=== PATIENT | male | born 1980 | race Caucasian/White ===

== ENCOUNTER 2021-01-09 18:54 | Emergency (ER) | payer OTHER ==
[2021-01-09 18:58] VITALS: RESP 18; TEMP 98.6
[2021-01-09] MEDS ORDERED: HYDROmorphone 1 MG/ML 1 ML SYRINGE IVP STA (19:16)
--- NOTE | 2021-01-09 19:30 | ED ---
General Adult HPI - General Chief complaint: Urogenital Stated complaint: Sent by [facility] - Kidney Stone Time Seen by Provider: 01/09/21 18:55 Source: patient, RN notes reviewed, old records reviewed Mode of arrival: wheelchair Limitations: no limitations - History of Present Illness Initial comments: This is a 40-year-old male who presents to the emergency department from [facility] he was diagnosed with a 1.8 cm kidney stone. Patient was sent up here initially to be admitted that there was a failure in the medication and the patient did not want to be admitted he just wanted better pain control so Dr. Mccarty was contacted and he contacted myself and asked me to get the patient 100 good pain control so that he could follow-up with him in the office tomorrow. Patient states the pain started about 2:00 this afternoon and he had kidney stone pain before so he knew fairly quickly what was going on. Patient denies any other pain. Patient denies any fever chills or cough per patient denies any chest pain difficulty breathing. Patient denies any reproducible pain with palpation. Patient had a CAT scan at [facility]. - Related Data Previous Rx's Medication Instructions Recorded HYDROcodone/APAP 5-325MG [[place] 1 - 2 tab PO Q6HR PRN #10 tab 01/09/21 5-325] Ketorolac [Toradol] 10 mg PO Q6HR #15 tab 01/09/21 Allergies Allergy/AdvReac Type Severity Reaction Status Date / Time No Known Allergies Allergy Verified 01/10/21 15:14 Review of Systems ROS Statement: Those systems with pertinent positive or pertinent negative responses have been documented in the HPI. ROS Other: All systems not noted in ROS Statement are negative. Past Medical History Additional Past Medical History / Comment(s): hx of kidney stones History of Any Multi-Drug Resistant Organisms: None Reported Additional Past Surgical History / Comment(s): vasectomy Smoking Status: Never smoker Past Alcohol Use History: Occasional Past Drug Use History: None Reported General Exam - General Exam Comments Initial Comments: GENERAL: Patient is well-developed and well-nourished. Patient is nontoxic and well- hydrated and is in moderate distress. ENT: Neck is soft and supple. No significant lymphadenopathy is noted. Oropharynx is clear. Moist mucous membranes. Neck has full range of motion without eliciting any pain. EYES: The sclera were anicteric and conjunctiva were pink and moist. Extraocular movements were intact and pupils were equal round and reactive to light. PULMONARY: Unlabored respirations. Good breath sounds bilaterally. No audible rales rhonchi or wheezing was noted. CARDIOVASCULAR: There is a regular rate and rhythm without any murmurs gallops or rubs. ABDOMEN: Soft and nontender with normal bowel sounds. SKIN: Skin is clear with no lesions or rashes and otherwise unremarkable. NEUROLOGIC: Patient is alert and oriented x3. Cranial nerves II through XII are grossly intact. Motor and sensory are also intact. Normal speech, volume and content. Symmetrical smile. MUSCULOSKELETAL: Normal extremities with adequate strength and full range of motion. No lower extremity swelling or edema. No calf tenderness. Mild CVA tenderness on the left LYMPHATICS: No significant lymphadenopathy is noted PSYCHIATRIC: Normal psychiatric evaluation. Limitations: no limitations Course Vital Signs 01/09/21 01/09/21 18:54 20:42 Temperature 98.6 F Pulse Rate 79 76 Respiratory 18 18 Rate Blood Pressure 150/95 143/93 O2 Sat by Pulse 100 95 Oximetry Medical Decision Making - Medical Decision Making Patient received one shot of Dilaudid and was feeling considerably better. He still had a little bit of pain so I gave him Toradol prior to discharge. Disposition Clinical Impression: Kidney stone on left side Disposition: HOME SELF-CARE Condition: Good Prescriptions: HYDROcodone/APAP 5-325MG [[place] 5-325] 1 - 2 tab PO Q6HR PRN #10 tab PRN Reason: Pain Ketorolac [Toradol] 10 mg PO Q6HR #15 tab Is patient prescribed a controlled substance at d/c from ED?: Yes When asked, does pt state using other controlled substances?: No If prescribed controlled substance>3 days was MAPS reviewed?: Prescribed <3 Days If opioid is for acute pain is fill amount 7 days or less?: Yes If Rx opioid, was Start Talking consent form obtained?: Yes Referrals: Rohan Baez MD [STAFF PHYSICIAN] - 01/10/21
[2021-01-09] MEDS ORDERED: KETOROLAC 15 MG/ML 1 ML VIAL IVP STA (20:20)
[2021-01-09 20:43] VITALS: BP 143/93; PULSE 76
== END 2021-01-09 20:43 | disposition home or self-care (01) ==
LOC: EC 18:54
DX: N20.0 Calculus of kidney (principal); Z87.442 Personal history of urinary calculi; Z98.52 Vasectomy status
CPT/HCPCS: J1170; J1885; 96374; 96375; 99283

== ENCOUNTER 2021-01-10 14:56 | Day surgery (SDC) | payer OTHER ==
--- NOTE | 2021-01-10 13:11 | P.GSHP ---
History of Present Illness H&P Date: 01/10/21 Chief Complaint: Left renal colic The patient is a 40-year-old white male with a history of recurrent urolithiasis. He has previously undergone ESWL once, and ureteroscopy with laser lithotripsy on 2 occasions. He now presents with left renal colic. A computed tomography scan shows evidence of left hydronephrosis due to a 1 cm left UPJ calculus. There are additional multiple renal calculi, the largest being 1.8 cm in the left kidney. - Constitutional Constitutional: Denies chills, Denies fever - Genitourinary (Male) Genitourinary: Reports flank pain, Reports kidney stones Past Medical History Additional Past Medical History / Comment(s): hx of kidney stones History of Any Multi-Drug Resistant Organisms: None Reported Additional Past Surgical History / Comment(s): vasectomy, ESWL, ureteroscopy with laser lithotripsy (x2) Smoking Status: Never smoker Past Alcohol Use History: Occasional Past Drug Use History: None Reported Medications and Allergies Home Medications Medication Instructions Recorded Confirmed Type HYDROcodone/APAP 5-325MG [[place] 1 - 2 tab PO Q6HR PRN #10 tab 01/09/21 Rx 5-325] Ketorolac [Toradol] 10 mg PO Q6HR #15 tab 01/09/21 Rx Allergies Allergy/AdvReac Type Severity Reaction Status Date / Time No Known Allergies Allergy Verified 01/09/21 18:58 Surgical - Exam - General well developed, well nourished, no distress - Respiratory normal respiratory effort, clear to auscultation - Cardiovascular Rhythm: regular Abnormal Heart Sounds: no systolic murmur, no diastolic murmur, no rub, no S3 Gallop, no S4 Gallop, no click, no other - Abdomen Abdomen: soft, no guarding, no rigid, no rebound - Psychiatric oriented to time, oriented to person, oriented to place, speech is normal, memory intact Results - Imaging CT scan - abdomen: report reviewed Assessment and Plan (1) Calculus of ureter Status: Acute Code(s): N20.1 - CALCULUS OF URETER SNOMED Code(s): 31555160 (2) Hydronephrosis with renal and ureteral calculous obstruction Status: Acute Code(s): N13.2 - HYDRONEPHROSIS WITH RENAL AND URETERAL CALCULOUS OBSTRUCTION SNOMED Code(s): 809113111 Plan: Cystoscopy, left ureteral stent insertion. The procedure has been reviewed in detail with the patient and his . The purpose of stent placement is to relieve ureteral obstruction. Potential risks include anesthesia, bleeding, infection, ureteral injury, and inability to successfully place the stent. Ureteroscopy may be required to place the stent. Arrangements will subsequently be made for him to undergo a left percutaneous nephrolithotomy.
[2021-01-10] MEDS ORDERED: ONDANSETRON 4 MG/2 ML VIAL ONE (15:16)
--- NOTE | 2021-01-10 15:19 | XR ---
EXAMINATION TYPE: XR KUB DATE OF EXAM: 01/10/2021 COMPARISON: 08/10/2010 INDICATION: Renal stones TECHNIQUE: Single view abdomen supine view FINDINGS: There is a normal bowel gas pattern. Psoas margins are normal. No organomegaly is present. There are several calcifications present over the renal and ureteral regions bilaterally. On the righ t this measures 2.2 x 1.5 cm. Proximal ureteral stone on the right may measure 1.0 x 0.8 cm. On the l eft a proximal left ureteral stone measures 1.3 x 1.0 cm. Punctate calcifications line the inferior p ole left kidney. Prior distal ureteral stone is not identified. IMPRESSION: 1. Multiple bilateral renal and ureteral stones
[2021-01-10] MEDS ORDERED: LACTATED RINGERS 1,000 ML IV ONE ×2 (15:28→18:16)
[2021-01-10] MEDS ORDERED: DEXAMETHASONE SOD PHOSPHATE 4 MG/ML 1 ML VIAL IVP ONE (15:33)
[2021-01-10 15:46] LABS: Albumin 4.1 g/dL (3.5-5.0); Calcium 8.8 mg/dL (8.4-10.2); Potassium 3.7 mmol/L (3.5-5.1); Total Protein 6.5 g/dL (6.3-8.2)
[2021-01-10] MEDS ORDERED: LIDOCAINE 1% INJ 10MG/ML (20 ML MDV) ONE (17:00)
[2021-01-10] MEDS ORDERED: fentaNYL (PF) 50 MCG/ML 2 ML AMP ONE (17:00)
[2021-01-10] MEDS ORDERED: MIDAZOLAM 2 MG/2 ML VIAL ONE (17:00)
[2021-01-10] MEDS ORDERED: PROPOFOL 10 MG/ML 20 ML VIAL IV ONE (17:00)
[2021-01-10] MEDS ORDERED: IOPAMIDOL-370 50ML BTL MISCELLANE ONE ×2 (17:48)
[2021-01-10 18:08] VITALS: RESP 16; TEMP 98
--- NOTE | 2021-01-10 18:14 | P.OP ---
Date of Procedure: 01/10/21 Preoperative Diagnosis: Left ureteral calculus Postoperative Diagnosis: Bilateral ureteral calculi Procedure(s) Performed: Cystoscopy, right retrograde pyelogram, bilateral ureteral stent insertion Anesthesia: GETA Surgeon: Rohan Baez Estimated Blood Loss (ml): 0 IV fluids (ml): 350 Pathology: none sent Condition: stable Disposition: PACU Indications for Procedure: The patient is a 40-year-old white male with a history of recurrent urolithiasis. He has previously undergone ESWL once, and ureteroscopy with laser lithotripsy on 2 occasions. He now presents with left renal colic. A CT scan report indicated the presence of left hydronephrosis due to a 1 cm left UPJ calculus. There are additional multiple renal calculi, the largest being 1.8 cm in the left kidney. The computed tomography scan report indicated no evidence of right hydronephrosis. However, a preoperative KUB x-ray suggests the presence of bilateral proximal ureteral calculi. Operative Findings: Bilateral proximal ureteral calculi Description of Procedure: The patient was taken to the operating room and placed in the dorsolithotomy position, with legs supported in Geronimo stirrups. The external genitalia was pr epped and draped sterilely. The 30 lens was used to introduce the 22-Macanese Stortz cystoscopic sheath through the urethra and into the bladder under direct vision. The prostatic urethra showed evidence of mild lateral lobe enlargement. The bladder was examined in its entirety. Both ureteral orifices were of normal anatomic location and configuration. No tumors or foreign bodies were seen. A 0.035 inch angle-tip Glidewire was passed through the cystoscope. The left ureteral orifice was cannulated, and the Glidewire was slowly advanced beyond the calculus and up to the renal pelvis. A 26 cm, 6-Macanese double-J ureteral stent was placed over the wire. Proper stent positioning was verified fluoroscopically and endoscopically. Using a 10-Macanese cone-tipped catheter, a right retrograde pyelogram was performed. This confirmed the presence of a right proximal ureteral calculus, and a right ureteral stent was placed in an identical fashion to the left. The bladder was emptied and the cystoscope removed. The patient tolerated the procedure well was taken to the recovery room in stable condition.
[2021-01-10 18:48] VITALS: BP 129/83; PULSE 81
--- NOTE | 2021-01-11 08:10 | FL ---
EXAMINATION TYPE: FL urography retrograde DATE OF EXAM: 01/10/2021 FLUOROSCOPY Fluoroscopy time of 40 seconds was used during bilateral stent placement for renal stones. 2 image/s document/s the procedure.
== END 2021-01-10 19:06 | disposition home or self-care (01) ==
LOC: OR 14:56
PROVIDERS: ATTEND Urology
DX: N13.2 Hydronephrosis with renal and ureteral calculous obstruction (principal); Z87.442 Personal history of urinary calculi; Z98.52 Vasectomy status; Z98.890 Other specified postprocedural states; Z79.1 Long term (current) use of non-steroidal anti-inflammatories (NSAID)
CPT/HCPCS: 52332; 80053; 74420; 74018; C2625; C1769; J2250; J1100; J0690; J2405; J2001; J3010; J2704; Q9967

== ENCOUNTER 2021-01-23 08:30 | Day surgery (SDC) | payer OTHER ==
--- NOTE | 2021-01-20 17:34 | P.GSHP ---
History of Present Illness H&P Date: 01/20/21 Chief Complaint: Renal colic The patient is a 40-year-old white male with a history of recurrent urolithiasis. He has previously undergone ESWL once, and ureteroscopy with laser lithotripsy on 2 occasions. He recently presented with left renal colic. A CT scan showed evidence of left hydronephrosis due to a 1 cm left UPJ calculus. There are additional multiple renal calculi, the largest being 1.8 cm in the right kidney. He underwent left ureteral stent insertion. At that time, it was noted that an 8 mm right renal calculus had migrated into the proximal ureter, so a right ureteral stent was placed as well. Alternative treatment options have been reviewed with the patient in detail. On the left side, options include ureteroscopy with laser lithotripsy versus extracorporeal shockwave lithotripsy (ESWL). On the right side, a percutaneous nephrolithotomy is also a consideration. He is aware that he will require multiple treatments, and he has elected to undergo left ESWL as his initial treatment. - Constitutional Constitutional: Denies chills, Denies fever - Genitourinary (Male) Genitourinary: Reports flank pain, Reports hematuria, Reports kidney stones Past Medical History Additional Past Medical History / Comment(s): hx of kidney stones History of Any Multi-Drug Resistant Organisms: None Reported Additional Past Surgical History / Comment(s): vasectomy, ESWL, ureteroscopy with laser lithotripsy (x2) Smoking Status: Never smoker Past Alcohol Use History: Occasional Past Drug Use History: None Reported Medications and Allergies Home Medications Medication Instructions Recorded Confirmed Type HYDROcodone/APAP 5-325MG [[place] 1 - 2 tab PO Q6HR PRN #10 tab 01/09/21 Rx 5-325] Ketorolac [Toradol] 10 mg PO Q6HR #15 tab 01/09/21 Rx Allergies Allergy/AdvReac Type Severity Reaction Status Date / Time No Known Allergies Allergy Verified 01/10/21 15:14 Surgical - Exam - General well developed, well nourished, no distress - Respiratory normal respiratory effort, clear to auscultation - Cardiovascular Rhythm: regular Abnormal Heart Sounds: no systolic murmur, no diastolic murmur, no rub, no S3 Gallop, no S4 Gallop, no click, no other - Abdomen Abdomen: soft, non tender, no guarding, no rigid, no rebound - Genitourinary normal penis with no external lesions, testicles non-tender - Psychiatric oriented to time, oriented to person, oriented to place, speech is normal, memory intact Results - Imaging CT scan - abdomen: report reviewed, image reviewed Assessment and Plan (1) Kidney stone on left side Status: Acute Code(s): N20.0 - CALCULUS OF KIDNEY SNOMED Code(s): 35581129 Plan: I discussed with the patient the treatment of the calculus with ESWL. I explained the possible need for repeat ESWL or alternative treatment in the event of treatment failure or incomplete fragmentation. I discussed the risks of ESWL, including anesthesia, collateral damage to other organs, renal contusion, and perinephric hematoma. The possible need for a secondary intervention such as ureteroscopy was discussed. Following a lengthy discussion, as a result of shared decision making, the patient has elected to proceed with left ESWL.
[~2021-01-23 08:30] MED LIST: LACTATED RINGERS 1,000 ML IV SCH
[2021-01-23] MEDS ORDERED: LACTATED RINGERS 1,000 ML IV ONE (08:51)
--- NOTE | 2021-01-23 08:57 | XR ---
EXAMINATION TYPE: XR KUB DATE OF EXAM: 01/23/2021 Comparison: 01/10/2021 Clinical History: 40-year-old male presurgical evaluation, OR SCHEDULED 01/23/21 Findings: Bilateral ureteral stents placed in the interval. 1.0 cm calcification along the proximal portion of the right ureteral stent. Possible 3 mm calcification along the proximal aspect of the left ureteral stent. Larger 2.0 cm right renal calculus. 9 mm left renal calculus. Nonobstructive bowel gas pattern . Mild to moderate stool burden. Impression: Bilateral nephrolithiasis and ureteral stents in place. A 1 cm calculus along the proximal portion of the right ureteral stent and 3 mm calculus along the proximal portion of the left ureteral stent.
[2021-01-23] MEDS ORDERED: ONDANSETRON 4 MG/2 ML VIAL ONE (09:16)
[2021-01-23] MEDS ORDERED: ONDANSETRON 4 MG/2 ML VIAL IVP ONE (09:21)
[2021-01-23] MEDS ORDERED: PROPOFOL 10 MG/ML 20 ML VIAL IV ONE (09:23)
[2021-01-23] MEDS ORDERED: fentaNYL (PF) 50 MCG/ML 2 ML AMP ONE (09:23)
[2021-01-23] MEDS ORDERED: KETAMINE 10 MG/ML 20 ML VIAL ONE (09:23)
[2021-01-23] MEDS ORDERED: LIDOCAINE 1% INJ 10MG/ML (20 ML MDV) ONE (09:23)
[2021-01-23] MEDS ORDERED: MIDAZOLAM 2 MG/2 ML VIAL ONE (09:23)
--- NOTE | 2021-01-23 10:07 | P.OP ---
Date of Procedure: 01/23/21 Preoperative Diagnosis: Left renal calculus, left ureteral calculus Postoperative Diagnosis: Same Procedure(s) Performed: Left extracorporal shockwave lithotripsy (ESWL) Anesthesia: MAC Surgeon: Rohan Baez Estimated Blood Loss (ml): 0 IV fluids (ml): 600 Pathology: none sent Condition: stable Disposition: PACU Indications for Procedure: The patient is a 40-year-old white male with a history of recurrent urolithiasis. He has previously undergone ESWL once, and ureteroscopy with laser lithotripsy on 2 occasions. He recently presented with left renal colic. A CT scan showed evidence of left hydronephrosis due to a 1 cm left UPJ calculus. There are additional multiple renal calculi, the largest being 1.8 cm in the right kidney. He underwent left ureteral stent insertion. At that time, it was noted that an 8 mm right renal calculus had migrated into the proximal ureter, so a right ureteral stent was placed as well. Alternative treatment options have been reviewed with the patient in detail. On the left side, options include ureteroscopy with laser lithotripsy versus extracorporeal shockwave lithotripsy (ESWL). On the right side, a percutaneous nephrolithotomy is also a consideration. He is aware that he will require multiple treatments, and he has elected to undergo left ESWL as his initial treatment. Operative Findings: Excellent fragmentation. Description of Procedure: The patient was taken to the operating room and placed on the Dornier Compact Delta II lithotripter in the supine position. The calculi were seen on biplanar fluoroscopy. Once the patient was properly positioned and sedated, lithotripsy was performed. The energy level was gradually increased per protocol, to an energy level of 5. After 200 shocks were administered, a 2 minute pause was i nstituted per protocol. A total of 2500 shocks were given at a rate of 80 shocks per minute. Fluoroscopy was utilized at a minimum to ensure proper positioning and determine the treatment status. The 9 mm calculus was initially treated, and fragmented extremely well. Once that was completed, the patient was repositioned and the 3 mm left proximal ureteral calculus was treated. It was no longer visible at the completion of the procedure, and the 9 mm calculus had dispersed well. The patient tolerated the procedure well was taken to the recovery room in stable condition. Instructions were given to strain the urine, and the patient will follow-up within one week.
[2021-01-23 10:14] VITALS: PULSE 76
[2021-01-23 10:35] VITALS: BP 136/92; RESP 20
[2021-01-23] MEDS ORDERED: ONDANSETRON ODT 4 MG TAB PO ONE (11:22)
== END 2021-01-23 11:38 | disposition home or self-care (01) ==
LOC: ORWHC2ENDO 08:30
PROVIDERS: ATTEND Urology
DX: N13.2 Hydronephrosis with renal and ureteral calculous obstruction (principal); Z87.442 Personal history of urinary calculi; Z98.890 Other specified postprocedural states; Z98.52 Vasectomy status; Z79.1 Long term (current) use of non-steroidal anti-inflammatories (NSAID)
CPT/HCPCS: 74018; 50590; J2250; J2405; J2001; J3010; J2704

== ENCOUNTER → 2021-01-27 | Outpatient (CLI) | payer OTHER ==
--- NOTE | 2021-01-27 10:47 | XR ---
EXAMINATION TYPE: XR KUB DATE OF EXAM: 01/27/2021 9:30 AM CLINICAL HISTORY: Left-sided lithotripsy. TECHNIQUE: Single upright KUB image of the abdomen is obtained. COMPARISON: Most recent x-ray 4 days ago. FINDINGS: Persistent bilateral double-J right ureter stents. Dominant 2.1 cm calculus upper to mid po le of the right kidney redemonstrated. Persistent 11 mm calculus proximal right ureter stable in posi tion. Additional scattered smaller central right renal calculi are stable. Interval successful fragme ntation of the 9 mm mid to lower pole left renal calculus. Small calcific fragments between the later al left L2 and L3 transverse processes are now more prominent. More prominent tiny densities superior to the pubic symphysis. Findings felt to reflect intraluminal bladder calculi and/or phleboliths. Overall nonobstructive bowel gas pattern. Visualized osseous structures intact. IMPRESSION: Interval successful fragmentation of the dominant 9 mm left renal calculus.
== END ==
LOC: RADXRMAIN 09:16
PROVIDERS: ATTEND Urology
DX: N20.0 Calculus of kidney (principal)
CPT/HCPCS: 74018

== ENCOUNTER → 2021-02-20 | Outpatient (CLI) | payer OTHER ==
--- NOTE | 2021-02-20 12:46 | XR ---
EXAMINATION TYPE: XR KUB DATE OF EXAM: 02/20/2021 7:43 AM CLINICAL HISTORY: Left-sided ureter stone. TECHNIQUE: Two supine KUB images of the abdomen are obtained. COMPARISON: Most recent x-ray January 27, 2021. Most recent outside CT January 09, 2021. FINDINGS: Persistent bilateral double-J ureter stents. Stable dominant 2.2 cm calculus upper pole rig ht kidney. There is 10 mm calculus proximal right ureter at level of L3 transverse process, slight di stal progression from most recent x-ray noted. Smaller right-sided renal calculi remain present seen better on recent CT. Small left-sided renal calculi on CT less well seen on plain films. No new or le ft ureter calculi clearly seen on plain films. Punctate densities inferior pelvis just above the pubi c symphysis correlate with prostate calcifications just right of midline. Overall nonobstructive bowel gas pattern. Lung bases are clear. IMPRESSION: As above
== END | disposition home or self-care (01) ==
LOC: RADXRMAIN 07:18
PROVIDERS: ATTEND Urology
DX: N20.2 Calculus of kidney with calculus of ureter (principal); Z96.0 Presence of urogenital implants; Z98.890 Other specified postprocedural states
CPT/HCPCS: 74018

== ENCOUNTER 2021-02-23 08:20 | Day surgery (SDC) | payer OTHER ==
--- NOTE | 2021-02-20 18:14 | P.GSHP ---
History of Present Illness H&P Date: 02/20/21 Chief Complaint: Renal colic The patient is a 41-year-old white male with a history of recurrent urolithiasis. He recently presented with left renal colic. A CT scan showed evidence of left hydronephrosis due to a 1 cm left UPJ calculus. There were additional multiple renal calculi, the largest being 1.8 cm in the right kidney. He was also found to have an 8 mm right proximal ureteral calculus. He underwent bilateral ureteral stent insertion, followed by bilateral ex tracorporal shockwave lithotripsy (ESWL). The left renal calculus fragmented well, but the right proximal ureteral calculus failed to fragment. He now comes for cystoscopy, bilateral ureteral stent removal, and right ureteroscopy with laser lithotripsy. - Constitutional Constitutional: Denies chills, Denies fever - Genitourinary (Male) Genitourinary: Reports flank pain, Reports hematuria, Reports kidney stones Past Medical History Additional Past Medical History / Comment(s): hx of kidney stones History of Any Multi-Drug Resistant Organisms: None Reported Additional Past Surgical History / Comment(s): vasectomy, ESWL, ureteroscopy with laser lithotripsy (x2) Smoking Status: Never smoker Past Alcohol Use History: Occasional Past Drug Use History: None Reported Medications and Allergies Home Medications Medication Instructions Recorded Confirmed Type HYDROcodone/APAP 5-325MG [[place] 1 - 2 tab PO Q6HR PRN #10 tab 01/09/21 01/23/21 Rx 5-325] Ketorolac [Toradol] 10 mg PO Q6HR #15 tab 01/09/21 01/23/21 Rx HYDROcodone/APAP 5-325MG [[place] 1 - 2 tab PO Q4HR PRN #15 tab 01/23/21 Rx 5-325] Ketorolac [Toradol] 10 mg PO Q6HR PRN #15 tab 01/23/21 Rx Allergies Allergy/AdvReac Type Severity Reaction Status Date / Time No Known Allergies Allergy Verified 01/23/21 09:01 Surgical - Exam - General well developed, well nourished, no distress - Neck no masses, trachea midline - Respiratory normal respiratory effort - Abdomen Abdomen: soft, non tender, no guarding, no rigid, no rebound - Genitourinary normal penis with no external lesions, testicles non-tender - Psychiatric oriented to time, oriented to person, oriented to place, speech is normal, memory intact Assessment and Plan (1) Calculus of ureter Status: Acute Code(s): N20.1 - CALCULUS OF URETER SNOMED Code(s): 51540913 (2) Calculus of kidney Status: Acute Code(s): N20.0 - CALCULUS OF KIDNEY SNOMED Code(s): 66894047 Plan: The patient appears to have no residual left renal calculi of significance. He will undergo cystoscopy with bilateral ureteral stent removal. Right ureteroscopy with laser lithotripsy will be performed. The proximal ureteral calculus will be treated, followed by the upper pole calculus. Given the significant stone burden, it may not be possible to complete the procedure and a single setting. If this is the case, the right ureteral stent will be replaced and a subsequent procedure will be performed a 1-2 weeks. The patient understands this, and is aware of potential risks which include anesthesia, bleeding, infection, and ureteral injury.
[2021-02-21 10:31] VITALS: BMI 28.3
[~2021-02-23 08:20] MED LIST changes: +DEXAMETHASONE SOD PHOSPHATE 4 MG/ML 1 ML VIAL IV ONE; +LIDOCAINE 1% (10MG/ML) FOR IV START INTRADERMA PRN; +METOCLOPRAMIDE 5 MG/ML 2 ML VIAL IVP PRN; +ONDANSETRON 4 MG/2 ML VIAL IVP ONE; +ONDANSETRON 4 MG/2 ML VIAL IVP PRN
--- NOTE | 2021-02-23 08:58 | XR ---
EXAMINATION TYPE: XR KUB DATE OF EXAM: 02/23/2021 COMPARISON: 02/20/2021 INDICATION: Renal stones TECHNIQUE: Single view abdomen frontal projection FINDINGS: There is nonspecific bowel gas pattern. Psoas margins are normal. No organomegaly is present. Bilateral ureteral stents are present. On the right there is a 0.8 cm calcification at the level of t he elbow for transverse process adjacent to the stent. There is a 2.2 x 1.6 cm large calcification up per pole right kidney. Smaller calcifications may be on the right. Small calcifications are likely in ferior urinary bladder region IMPRESSION: 1. Stable calcification adjacent to the right ureteral stent. 2. Large right renal stone
[2021-02-23 09:02] VITALS: RESP 16
[2021-02-23] MEDS ORDERED: MIDAZOLAM 2 MG/2 ML VIAL ONE (10:00)
[2021-02-23] MEDS ORDERED: PROPOFOL 10 MG/ML 20 ML VIAL IV ONE (10:00)
[2021-02-23] MEDS ORDERED: fentaNYL (PF) 50 MCG/ML 2 ML AMP ONE (10:00)
[2021-02-23] MEDS ORDERED: LIDOCAINE 1% INJ 10MG/ML (20 ML MDV) ONE (10:00)
[2021-02-23] MEDS ORDERED: SUCCINYLCHOLINE CHLORIDE 100 MG/5 ML SYR IV ONE (10:00)
[2021-02-23] MEDS ORDERED: SCOPOLAMINE 1.5MG/72HR PATCH TRANSDERM ONE (10:06)
[2021-02-23] MEDS ORDERED: IOPAMIDOL-370 50ML BTL MISCELLANE ONE (10:34)
[2021-02-23] MEDS ORDERED: LACTATED RINGERS 1,000 ML IV ONE (10:48)
--- NOTE | 2021-02-23 12:53 | P.OP ---
Date of Procedure: 02/23/21 Preoperative Diagnosis: Right ureteral calculus, right renal calculus Postoperative Diagnosis: Same Procedure(s) Performed: Cystoscopy, left ureteral stent removal, right ureteroscopy with Holmium laser lithotripsy, right ureteral stent change Anesthesia: KIETA Surgeon: Rohan Baez Estimated Blood Loss (ml): 5 IV fluids (ml): 1,800 Pathology: none sent Condition: stable Disposition: PACU Indications for Procedure: The patient is a 41-year-old white male with a history of recurrent urolithiasis. He recently presented with left renal colic. A CT scan showed evidence of left hydronephrosis due to a 1 cm left UPJ calculus. There were additional multiple renal calculi, the largest being 1.8 cm in the right kidney. He was also found to have an 8 mm right proximal ureteral calculus. He underwent bilateral ureteral stent insertion, followed by bilateral extracorporal shockwave lithotripsy (ESWL). The left renal calculus fragmented well, but the right proximal ureteral calculus failed to fragment. He now comes for cystoscopy, bilateral ureteral stent removal, and right ureteroscopy with laser lithotripsy. Operative Findings: Excellent fragmentation of right proximal ureteral calculus and right upper pole renal calculus Description of Procedure: The patient was taken to the operating room and placed in the dorsolithotomy position, with legs supported in Geronimo stirrups. The external genitalia was prepped and draped sterilely. The 30 lens was used to introduce the 21-Brazilian Vogel cystoscopic sheath through the urethra and into the bladder under direct vision. The prostatic urethra showed evidence of mild lateral lobe enlargement. The bladder was examined in its entirety. The distal ends of both ureteral stents were seen. The distal end of the left ureteral stent was grasped with grasping forceps and removed along with the cystoscope. The distal end of the right ureteral stent was grasped, but the stent could not be pulled down due to resistance at the proximal end. A 0.035 inch Glidewire was passed through the cystoscope. The right ureteral orifice was cannulated, and the Glidewire was passed alongside the right ureteral stent. The Vogel Cobra ureteroscope was passed over the wire but would not passed through the right ureteral orifice. Therefore, an 18-Brazilian balloon dilating catheter was used to dilate the orifice. The cystoscope was passed into the bladder, and it was then possible to grasp the stent and remove it successfully. The Glidewire was passed up to the right renal pelvis, and n 11/13-Brazilian ureteral access catheter was passed o neto the wire, up to the proximal ureter. The flexible ureteroscope was then passed through the ureteral access catheter sheath, up to the stone. The 272 micron Holmium laser probe was passed through the ureteroscope, and lithotripsy was performed. After fragmenting the proximal ureteral calculus, the upper pole calculus was identified and fragmented prime medial using a dusting mode. The calculus was very dense. Fragmentation of the calculus was completed, though it was difficult to confirm that all calculus fragments would be small enough to pass as there was considerable debris within the right renal pelvis. The Glidewire was passed through the ureteroscope, which was removed. The Glidewire was backloaded into the cystoscope, which was passed into the bladder. A 26 cm, 6-Brazilian double-J ureteral stent was placed over the wire. Proper stent positioning was verified fluoroscopically and endoscopically. The bladder was emptied and the cystoscope removed. The patient tolerated the procedure well and was taken to the recovery room in stable condition. [facility] [facility]OCKS Report: Procedure Acuity: Elective Stone Size and Location: Ureteral Dilation: Balloon Dilation Ureteral Access Sheath Used: Yes Stone Sent for Analysis: No All Stones/Fragments Were Removed with a Basket: No Complications: No Preoperative Antibiotics Given: Yes Stent Placed: Yes If Stent Placed, Was String Left Attached: No If Stent Placed, When is it to be Removed: 2 weeks Discharge Medications: Tamsulosin, Toradol, Molino
[2021-02-23 13:00] VITALS: TEMP 96.9
--- NOTE | 2021-02-23 13:12 | FL ---
Fluoroscopy INDICATION: Pain FINDINGS: Fluoroscopy time: 1 minute 51 seconds. Images obtained: 2. IMPRESSIONS: 1. Documentation of fluoroscopy.
[2021-02-23] MEDS: HYDROmorphone 0.5 MG/0.5 ML SYRINGE IVP PRN ×3 (13:19→13:45)
[2021-02-23] MEDS ORDERED: KETOROLAC 15 MG/ML 1 ML VIAL IVP ONE (13:50)
[2021-02-23] MEDS ORDERED: fentaNYL (PF) 50 MCG/ML 2 ML AMP IVP ONE ×3 (14:04→14:18)
[2021-02-23 14:48] VITALS: BP 124/78; PULSE 74
== END 2021-02-23 15:00 | disposition home or self-care (01) ==
LOC: OR 08:20
PROVIDERS: ATTEND Urology
DX: N13.2 Hydronephrosis with renal and ureteral calculous obstruction (principal); Z87.442 Personal history of urinary calculi
CPT/HCPCS: 76000; 74018; 52356; C2625; C1769; J2250; J1100; J0690; J2405; J2001; J3010; J1885; J0330; J2704; J1170; Q9967

== ENCOUNTER 2021-03-06 10:55 | Day surgery (SDC) | payer OTHER ==
--- NOTE | 2021-02-24 18:24 | P.GSHP ---
History of Present Illness H&P Date: 02/24/21 Chief Complaint: Renal colic The patient is a 41-year-old white male with a history of recurrent urolithiasis. He recently presented with left renal colic. A CT scan showed evidence of left hydronephrosis due to a 1 cm left UPJ calculus. There were additional multiple renal calculi, the largest being 1.8 cm in the right kidney. He was also found to have an 8 mm right proximal ureteral calculus. He underwent bilateral ureteral stent insertion, followed by bilateral ex tracorporal shockwave lithotripsy (ESWL). The left renal calculus fragmented well, but the right proximal ureteral calculus failed to fragment. He subsequently underwent cystoscopy, left ureteral stent removal, and right ureteroscopy with laser lithotripsy. The proximal ureteral calculus was fragmented, as well as the large upper pole calculus. The stent was replaced. He now comes for stent removal, along with ureteroscopic removal of any residual calculi. - Constitutional Constitutional: Denies chills, Denies fever - Genitourinary (Male) Genitourinary: Reports flank pain, Reports hematuria, Reports kidney stones Past Medical History Additional Past Medical History / Comment(s): hx of kidney stones History of Any Multi-Drug Resistant Organisms: None Reported Additional Past Surgical History / Comment(s): vasectomy, ESWL, ureteroscopy with laser lithotripsy (x2) Past Anesthesia/Blood Transfusion Reactions: Previous Problems w/ Anesthesia, Postoperative Nausea & Vomiting (PONV) Additional Past Anesthesia/Blood Transfusion Reaction / Comment(s): has experienced ponv with headaches with IV sedation pt states does better with general anesthetic Smoking Status: Never smoker - Past Family History Mother Family Medical History: No Reported History Medications and Allergies Home Medications Medication Instructions Recorded Confirmed Type HYDROcodone/APAP 5-325MG [[place] 1 - 2 tab PO Q4HR PRN #15 tab 01/23/21 02/21/21 Rx 5-325] HYDROcodone/APAP 5-325MG [[place] 1 - 2 tab PO Q4HR PRN #15 tab 02/23/21 Rx 5-325] Allergies Allergy/AdvReac Type Severity Reaction Status Date / Time No Known Allergies Allergy Verified 02/23/21 08:52 Surgical - Exam - General well developed, well nourished, no distress - Respiratory normal respiratory effort - Abdomen Abdomen: soft, non tender, no guarding, no rigid, no rebound - Genitourinary normal penis with no external lesions, testicles non-tender - Psychiatric oriented to time, oriented to person, oriented to place, speech is normal, memory intact Assessment and Plan (1) Calculus of kidney Status: Acute Code(s): N20.0 - CALCULUS OF KIDNEY SNOMED Code(s): 40100957 Plan: Cystoscopy, right ureteral stent removal, right ureteroscopy with Holmium laser lithotripsy and/or stone basketing. I am hopeful that this will be the patient' s last procedure. He is aware of potential risks, which include anesthesia, bleeding, infection, and ureteral injury.
[2021-03-02 09:34] VITALS: BMI 29.0
[~2021-03-06 10:55] MED LIST changes: +HYDROmorphone 0.5 MG/0.5 ML SYRINGE IVP PRN; -METOCLOPRAMIDE 5 MG/ML 2 ML VIAL IVP PRN; -ONDANSETRON 4 MG/2 ML VIAL IVP PRN; +SCOPOLAMINE 1.5MG/72HR PATCH TRANSDERM ONE
--- NOTE | 2021-03-06 11:25 | XR ---
EX EXAMINATION TYPE: XR KUB DATE OF EXAM: 03/06/2021 HISTORY: Pain Comparison: None.Single KUB is submitted for interpretation. Findings: Right renal calculi: None Visualized. Right ureteral calculi: Double pigtail ureteral stent in place. 2 tiny calculi noted at the L3-4 leve l measuring up to 3 mm each. Left renal calculi: None Visualized. Left ureteral calculi: None Visualized. Pelvic calcifications: None Visualized. Bowel gas pattern is unremarkable. No free air. No mass effects. IMPRESSION: 1. Double pigtail ureteral stent in place. 2 tiny calculi noted at the L3-4 level measuring up to 3 m m each.
[2021-03-06] MEDS ORDERED: MIDAZOLAM 2 MG/2 ML VIAL IV ONE (12:23)
[2021-03-06] MEDS ORDERED: MIDAZOLAM 2 MG/2 ML VIAL ONE (12:47)
[2021-03-06] MEDS ORDERED: LIDOCAINE 1% INJ 10MG/ML (20 ML MDV) ONE (12:47)
[2021-03-06] MEDS ORDERED: fentaNYL (PF) 50 MCG/ML 2 ML AMP ONE (12:47)
[2021-03-06] MEDS ORDERED: diphenhydrAMINE 50 MG/ML 1 ML VIAL ONE (12:47)
[2021-03-06] MEDS ORDERED: PROPOFOL 10 MG/ML 20 ML VIAL IV ONE (12:47)
[2021-03-06] MEDS ORDERED: SUCCINYLCHOLINE CHLORIDE 100 MG/5 ML SYR IV ONE (12:47)
[2021-03-06] MEDS ORDERED: LACTATED RINGERS 1,000 ML IV ONE (13:14)
--- NOTE | 2021-03-06 13:44 | P.OP ---
Date of Procedure: 03/06/21 Preoperative Diagnosis: Right ureteral calculus, right renal calculi Postoperative Diagnosis: Same Procedure(s) Performed: Cystoscopy, right ureteral stent removal, right ureteroscopy with Holmium laser lithotripsy Anesthesia: ROSY Surgeon: Rohan Baez Estimated Blood Loss (ml): 0 IV fluids (ml): 1,700 Pathology: none sent Condition: stable Disposition: PACU Indications for Procedure: The patient is a 41-year-old white male with a history of recurrent urolithiasis. He recently presented with left renal colic. A CT scan showed evidence of left hydronephrosis due to a 1 cm left UPJ calculus. There were additional multiple renal calculi, the largest being 1.8 cm in the right kidney. He was also found to have an 8 mm right proximal ureteral calculus. He underwent bilateral ureteral stent insertion, followed by bilateral extracorporal shockwave lithotripsy (ESWL). The left renal calculus fragmented well, but the right proximal ureteral calculus failed to fragment. He subsequently underwent cystoscopy, left ureteral stent removal, and right ureteroscopy with laser lithotripsy. The proximal ureteral calculus was fragmented, as well as the large upper pole calculus. The stent was replaced. He now comes for stent removal, along with ureteroscopic removal of any residual calculi. Operative Findings: 6 mm right proximal ureteral calculus, fragmented completely. Description of Procedure: The patient was taken to the operating room and placed in the dorsolithotomy position, with legs supported in Geronimo stirrups. The external genitalia was prepped and draped sterilely. The 30 lens was used to introduce the 21-Upper Sor[place] Vogel cystoscopic sheath through the urethra and into the bladder under direct vision. The prostatic urethra showed evidence of mild lateral lobe enlargement. The bladder was examined in its entirety. The distal end of the right ureteral stent was grasped with grasping forceps and removed along with the cystoscope. A 0.035 inch Glidewire was passed through the stent and up to the right renal pelvis. The Vogel Boa ureteroscope was passed over the wire, up to the proximal right ureter. The Glidewire was then removed, and the ureteroscope was slowly advanced under direct vision. A calculus was encountered within the proximal ureter, measuring approximately 6 mm in size. The 272 micron Holmium laser probe was passed through the ureteroscope, and lithotripsy was performed. After fragmenting the proximal ureteral calculus, fragments of the calculus refluxed into an upper pole calyx. Fragmentation was completed, and each calyx was exam ined to confirm that there were no residual calculi. There were no residual calculus fragments exceeding the size of the laser fiber tip. The ureteroscope was slowly withdrawn under direct vision. There was no evidence of ureteral trauma, and no residual calculi were seen within the ureter. The patient tolerated the procedure well and was taken to the recovery room in stable condition.
[2021-03-06 13:55] VITALS: TEMP 98
--- NOTE | 2021-03-06 13:56 | FL ---
EXAMINATION TYPE: FL fluoroscopy <1hr DATE OF EXAM: 03/06/2021 CLINICAL HISTORY: RIGHT SIDE LITHOTRIPSY TECHNIQUE: Fluoroscopy. COMPARISON: None. FINDINGS: Right side lithotripsy. 5 sec fl time, Dr. Baez. 1 image scanned. IMPRESSION: As Above.
[2021-03-06 15:22] VITALS: RESP 100
[2021-03-06 15:55] VITALS: BP 147/78; PULSE 64
== END 2021-03-06 15:47 | disposition home or self-care (01) ==
LOC: OR 10:55
PROVIDERS: ATTEND Urology
DX: N20.2 Calculus of kidney with calculus of ureter (principal); Z87.442 Personal history of urinary calculi; Z98.52 Vasectomy status; Z98.890 Other specified postprocedural states
CPT/HCPCS: 52353; 74018; C1758 ×3; C1769; C1894; J2250; J1200; J1100; J0690; J2405; J2001; J3010; J0330; J2704; 76000

== ENCOUNTER → 2022-12-03 | Outpatient (CLI) | payer OTHER ==
--- NOTE | 2022-12-04 07:58 | XR ---
EXAMINATION TYPE: XR KUB DATE OF EXAM: 12/03/2022 3:59 PM CLINICAL HISTORY: Right-sided renal calculus. TECHNIQUE: Two Upright KUB images of the abdomen are obtained. COMPARISON: Prior abdominal x-ray March 06, 2022 FINDINGS: Interval removal of right double-J ureter stent. Now visualized 3 right renal calculi just above right 12th rib measuring up to 11 mm in size operative midpole level right kidney. No definite left-sided nephrolithiasis. Right-sided tiny inferior pelvic phleboliths redemonstrated. Overall nonobstructive bowel gas pattern. Visualized lung bases are clear. No free air is seen. [place] us structures are intact. IMPRESSION: As above.
== END | disposition home or self-care (01) ==
LOC: RADXRMAIN 15:45
PROVIDERS: ATTEND Urology
DX: N20.0 Calculus of kidney (principal)
CPT/HCPCS: 74018

== ENCOUNTER → 2022-12-07 | Outpatient (CLI) | payer OTHER ==
[2022-12-07 18:46] LABS: Basophils # (A) 0.02 X 10*3/uL (0.00-0.10); Basophils % (A) 0.5 %; Eosinophils # (A) 0.22 X 10*3/uL (0.04-0.35); Eosinophils % (A) 5.7 %; HCT 44.9 % (39.6-50.0); HGB 14.8 g/dL (13.0-17.0); Immature Grans, Automated 0.3 %; Lymphocytes # (A) 1.54 X 10*3/uL (0.90-5.00); Lymphocytes % (A) 39.7 %; MCH 29.2 pg (27.0-32.0); MCV 88.6 fL (80.0-97.0); Mean Platelet Volume 9.5 fL (9.5-12.2); Monocytes # (A) 0.35 X 10*3/uL (0.20-1.00); NRBC Per 100 WBC 0 /100 WBCS (0.0-0.0); Neutrophils # (A) 1.74 X 10*3/uL (1.80-7.70); Neutrophils % (A) 44.8 %; Platelet Count 270 X 10*3/uL (140-440); RBC 5.07 X 10*6/uL (4.40-5.60); RDW 11.9 % (11.5-14.5); WBC 3.88 X 10*3/uL (4.50-10.00)
[2022-12-07 18:57] LABS: African American GFR (CKD) 120.8 (60.0-200.0); Albumin/Globulin Ratio 2.63 (1.60-3.17); Anion Gap 10.9 mmol/L (10.00-18.00); BUN/Creat Ratio 16.11 Ratio (12.00-20.00); Blood Urea Nitrogen 14.5 mg/dL (9.0-27.0); Calcium 9.5 mg/dL (8.7-10.3); Carbon Dioxide 27.1 mmol/L (20.0-27.5); Globulin 1.9 g/dL (1.6-3.3); Non-African American GFR(CKD) 104.2 (60.0-200.0); Potassium 4.5 mmol/L (3.5-5.5); Total Bilirubin 0.9 mg/dL (0.30-1.20); Total Protein 6.9 g/dL (6.2-8.2)
== END | disposition home or self-care (01) ==
LOC: LABPAT 08:49
PROVIDERS: ATTEND Urology
DX: Z01.812 Encounter for preprocedural laboratory examination (principal); N20.0 Calculus of kidney
CPT/HCPCS: 80053; 85025

== ENCOUNTER → 2023-02-01 | Outpatient (CLI) | payer BC, OTHER ==
[2023-02-01 18:49] LABS: Anion Gap 13.6 mmol/L (10.00-18.00); Carbon Dioxide 28.4 mmol/L (20.0-27.5); Potassium 4.1 mmol/L (3.5-5.5)
== END | disposition home or self-care (01) ==
LOC: LABWHC1 13:59
PROVIDERS: ATTEND Urology
DX: R82.994 Hypercalciuria (principal)
CPT/HCPCS: 36415; 80051